=== PATIENT | female | born 1985 | race Two or more races ===

== ENCOUNTER 2020-09-10 10:05 | Outpatient (CLI) | payer OTHER ==
[2020-09-10 11:33] LABS: BASOPHILS % (AUTO) 0 % (0-1); EOSINOPHILS % (AUTO) 1 % (1-7); LYMPHOCYTES % (AUTO) 11 % (22-44); MEAN CORPUSCULAR HEMOGLOBIN 30.8 pg (27.0-34.8); MEAN CORPUSCULAR HGB CONC 33.8 g/dL (32.4-35.8); MEAN PLATELET VOLUME 7.5 fL (7.4-10.4); MONOCYTES % (AUTO) 5 % (2-9); NEUTROPHILS % (AUTO) 83 % (42-75); PLATELET COUNT 315 x10^3/uL (130-400); RED BLOOD COUNT 4.14 x10^6/uL (3.82-5.3); RED CELL DISTRIBUTION WIDTH 14.3 % (9.6-15.2)
== END 2020-09-10 23:59 | disposition home or self-care (01) ==
LOC: LAB 10:05
PROVIDERS: ATTEND Obstetrics & Gynecology Maternal & Fetal Medicine
DX: Z34.80 Encounter for supervision of other normal pregnancy, unspecified trimester (principal); Z34.90 Encounter for supervision of normal pregnancy, unspecified, unspecified trimester; Z83.49 Family history of other endocrine, nutritional and metabolic diseases
CPT/HCPCS: 36415; 82950; 84443; 85025; 86592

== ENCOUNTER 2020-12-06 18:20 | Outpatient (CLI) | payer OTHER ==
[~2020-12-06] VITALS: Ht 175.3 cm; Wt 84.5 kg
[2020-12-06 19:01] VITALS: BP 108/62
[2020-12-14] MEDS ORDERED: PREN1TAB60 PO (07:34)
[2020-12-16] MEDS ORDERED: IBUP-1222 PO (09:38)
[2020-12-16] MEDS ORDERED: DOCU-131 PO (09:39)
[2020-12-16] MEDS ORDERED: OXYC1TAB12 PO (09:40)
== END 2020-12-06 21:08 | disposition home or self-care (01) ==
LOC: LDOP 18:20
PROVIDERS: ATTEND Obstetrics & Gynecology Maternal & Fetal Medicine
DX: O36.8130 Decreased fetal movements, third trimester, not applicable or unspecified (principal); Z3A.36 36 weeks gestation of pregnancy
CPT/HCPCS: 59025; 76819

== ENCOUNTER 2020-12-10 12:04 | Outpatient (CLI) | payer OTHER ==
[~2020-12-10] VITALS: Ht 175.3 cm; Wt 84.5 kg
[2020-12-14] MEDS ORDERED: PREN1TAB60 PO (07:34)
[2020-12-16] MEDS ORDERED: IBUP-1222 PO (09:38)
[2020-12-16] MEDS ORDERED: DOCU-131 PO (09:39)
[2020-12-16] MEDS ORDERED: OXYC1TAB12 PO (09:40)
== END 2020-12-10 14:00 | disposition home or self-care (01) ==
LOC: LDOP 12:04
PROVIDERS: ATTEND Obstetrics & Gynecology Maternal & Fetal Medicine
DX: Z34.93 Encounter for supervision of normal pregnancy, unspecified, third trimester (principal); Z3A.37 37 weeks gestation of pregnancy
CPT/HCPCS: 59025; 76819

== ENCOUNTER 2020-12-13 13:06 | Outpatient (CLI) | payer OTHER ==
[2020-12-14] MEDS ORDERED: PREN1TAB60 PO (07:34)
[2020-12-16] MEDS ORDERED: IBUP-1222 PO (09:38)
[2020-12-16] MEDS ORDERED: DOCU-131 PO (09:39)
[2020-12-16] MEDS ORDERED: OXYC1TAB12 PO (09:40)
== END 2020-12-13 15:29 | disposition home or self-care (01) ==
LOC: LDOP 13:06
PROVIDERS: ATTEND Obstetrics & Gynecology Maternal & Fetal Medicine
DX: Z34.93 Encounter for supervision of normal pregnancy, unspecified, third trimester (principal); Z3A.38 38 weeks gestation of pregnancy
CPT/HCPCS: 59025; 76819

== ENCOUNTER 2020-12-14 05:42 | Inpatient (IN) | payer OTHER ==
[~2020-12-14] VITALS: Ht 175.3 cm; Wt 84.1 kg
[2020-12-16 09:03] VITALS: BP 109/73
== END 2020-12-16 11:35 | disposition home or self-care (01) | DRG 788 ==
LOC: LDIP 05:42 → 2NW 10:45
PROVIDERS: ADMIT Obstetrics & Gynecology Maternal & Fetal Medicine; ATTEND Obstetrics & Gynecology Maternal & Fetal Medicine
PROC: 10D00Z1 Extraction of Products of Conception, Low, Open Approach (ICD-10-PCS; principal; 2020-12-14)
PROC: 3E0234Z Introduction of Serum, Toxoid and Vaccine into Muscle, Percutaneous Approach (ICD-10-PCS; 2020-12-14)
DX: O99.344 Other mental disorders complicating childbirth (principal); F32.9 Major depressive disorder, single episode, unspecified; Z20.822 Contact with and (suspected) exposure to COVID-19; Z37.0 Single live birth; Z3A.38 38 weeks gestation of pregnancy; Z23 Encounter for immunization